=== PATIENT | female | born 1950 | race Caucasian/White ===

== ENCOUNTER 2017-10-29 21:56 | Emergency (ER) | payer OTHER ==
[~2017-10-29] VITALS: Ht 170.2 cm; Wt 73.9 kg
[~2017-10-29 21:56] MED LIST: ASPIRIN81 M1 PO; CALCIUM OYSTER500 MG PO; DELTASONE5 MG PO; FISH OIL 500 M1 EACH PO; FOLIC ACID0.8 MG PO; LOPRESSOR25 MG PO; MOBIC15 MG PO; MULTIVITAMIN1 EAC1 PO; PLAQUENIL200 MG PO; TREXALL15 MG PO; VITAMIN C1500 MG PO
[2017-10-29] MEDS ORDERED: ULTRAM50 MG PO (23:46)
[2017-10-29 23:54] VITALS: BP 122/75
== END 2017-10-29 23:54 | disposition home or self-care (01) ==
LOC: EME 21:56 → RME 21:56
DX: S80.211A Abrasion, right knee, initial encounter (principal); S50.311A Abrasion of right elbow, initial encounter; S60.221A Contusion of right hand, initial encounter; W01.0XXA Fall on same level from slipping, tripping and stumbling without subsequent striking against object, initial encounter; M85.841 Other specified disorders of bone density and structure, right hand; M06.9 Rheumatoid arthritis, unspecified; Z79.82 Long term (current) use of aspirin; Z87.891 Personal history of nicotine dependence; Z85.9 Personal history of malignant neoplasm, unspecified; Z88.2 Allergy status to sulfonamides
CPT/HCPCS: 73130; 99281; 99283